=== PATIENT | male | born 1940 | race Caucasian/White ===

== ENCOUNTER 2017-08-05 07:22 | Emergency (ER) | payer MEDICARE ==
[~2017-08-05] VITALS: Ht 170.2 cm; Wt 59.0 kg
== END 2017-08-05 07:51 | disposition home or self-care (01) ==
LOC: ED 07:22
PROC: 09C47ZZ Extirpation of Matter from Left External Auditory Canal, Via Natural or Artificial Opening (ICD-10-PCS; principal; 2017-08-05)
DX: T16.2XXA Foreign body in left ear, initial encounter (principal); F17.200 Nicotine dependence, unspecified, uncomplicated
CPT/HCPCS: 69200; 99282

== ENCOUNTER 2024-03-13 17:15 | Emergency (ER) | payer MEDICARE, OTHER ==
[~2024-03-13] VITALS: Ht 170.2 cm; Wt 55.9 kg
[2024-03-13 17:44] LABS: BILIRUBIN, URINE NEGATIVE (negative); BLOOD/HGB, URINE NEGATIVE (Negative); KETONE, URINE NEGATIVE (Negative); LEUK ESTERASE, URINE NEGATIVE (negative); NITRITE, URINE NEGATIVE (negative)
[2024-03-13 17:55] LABS: BASOPHILS 0.8 % (0-2); EOSINOPHILS 1.3 % (0-6); HEMATOCRIT 39.7 % (35.0-50.0); HEMOGLOBIN 13.4 g/dL (12.0-18.0); LYMPHOCYTES 20.3 % (24-44); MCH 30.5 (27-36); MCHC 33.8 g/dl (30-36); MCV 90.4 fl (81-99); MONOCYTES 10.6 % (0-12); PLATELET COUNT 346 K/uL (140-440); RBC 4.39 M/ul (4.3-5.7); RDW 13.8 (10.5-15.0)
[2024-03-13 18:10] LABS: ALBUMIN 3.5 g/dL (3.4-5.0); ANION GAP 10.8 (7-21); BILIRUBIN, TOTAL 0.3 ng/dL (0.2-1.0); BUN/CREATININE RATIO 18.1 (6.0-28.6); CALCIUM 9.2 mg/dL (8.5-10.1); CREATININE, SERUM 1.16 mg/dL (0.70-1.30); POTASSIUM 3.8 mmol/L (3.5-5.1)
[2024-03-13 20:06] LABS: INFLUENZA B NAA NEGATIVE (NEGATIVE); RESPIRATORY SYNCYTIAL VIR NAA NEGATIVE (NEGATIVE)
[2024-03-14 17:24] LABS: ACETAMINOPHEN 0 ug/mL (10-30); ALCOHOL, MEDICAL <3 ng/dL (<3); SALICYLATE 0.8 mg/dL (2.8-20.0); TSH, 3RD GENERATION 2.096 uIU/mL (0.358-3.740)
[2024-03-14 17:54] LABS: AMPHETAMINES, URINE NEGATIVE (NEGATIVE); BARBITURATES, URINE NEGATIVE (NEGATIVE); BENZODIAZEPINE, URINE NEGATIVE (NEGATIVE); BUPRENORPHINE, URINE NEGATIVE (NEGATIVE); CANNABINOID, URINE NEGATIVE (NEGATIVE); COCAINE, URINE NEGATIVE (NEGATIVE); ECSTASY, URINE NEGATIVE (NEGATIVE); FENTANYL, URINE NEGATIVE (NEGATIVE); METHADONE, URINE NEGATIVE (NEGATIVE); OPIATES, URINE NEGATIVE (NEGATIVE); OXYCODONE, URINE NEGATIVE (NEGATIVE); PHENCYCLIDINE, URINE NEGATIVE (NEGATIVE)
[2024-03-15] MEDS ORDERED: OLANZapine 10 MG TABDIS PO SCH (09:00)
--- NOTE | 2024-03-15 19:00 | EKG ---
[facility] [address] [facility] [place], [place] [address] Signed Sinus bradycardia with 1st degree AV block Low voltage QRS Cannot rule out Anterior infarct , age undetermined Abnormal ECG No previous ECGs available Confirmed by Karthik Bauer MD ([id number]) on 03/15/2024 6:59:59 PM Electronically Signed By: KARTHIK BAUER MD 03/15/241899 PATIENT NAME: NAILA GRAJEDA EDUARDO Electrocardiogram DATE OF : 38 PHYSICIAN: KARTHIK BAUER MD REPORT #: [id number] REPORT IS CONFIDENTIAL AND NOT TO BE RELEASED WITHOUT AUTHORIZATION
[2024-03-19 08:07] VITALS: BP 148/93
== END 2024-03-19 08:07 ==
LOC: ED 17:15
PROVIDERS: Emergency Medicine
DX: R40.4 Transient alteration of awareness (principal); F29 Unspecified psychosis not due to a substance or known physiological condition; F17.200 Nicotine dependence, unspecified, uncomplicated; Z11.52 Encounter for screening for COVID-19
CPT/HCPCS: 36415; 80053; 80307; 81003; 83690; 83735; 83880; 84443; 85025; 87502; 99285-25; G0480; U0002